=== PATIENT | female | born 1975 | race African-American/Black ===

== ENCOUNTER 2022-04-28 15:47 | Inpatient (IN) ==
[2022-04-28 16:23] LABS: Basophils # 0.1 10*3/uL (0.0-0.2); Basophils % 0.7 % (0.0-0.8); Eosinophils # 0.1 10*3/uL (0.0-0.87); Eosinophils % 0.7 % (0.00-10.9); Hematocrit 32.2 VOL% (35.7-47.0); Hemoglobin 10.1 GM/DL (12.0-16.0); Immature Granulocytes % 0.5 %; Immature Granulocytes Absolute 0.05 #; Lymphocytes # 2.4 10*3/uL (1.4-4.0); Lymphocytes % 21.6 % (21.3-54.2); Mean Corpuscular HGB Conc 31.4 GM/DL (32-36); Mean Platelet Volume 9.9 FL (9.6-12.0); Monocytes # 0.6 10*3/uL (0.11-0.8); Monocytes % 5.2 % (1.7-12.7); Neutrophils % 71.3 % (38.7-73.9); Platelet Count 231 T/CUMM (130-400); Red Blood Count 4.18 MC/CUMM (3.8-5.5); Red Cell Distribution Width 20.9 % (9.3-17.3); White Blood Count 10.9 T/CUMM (4-12)
[2022-04-28 16:50] LABS: Albumin 3.8 G/DL (3.4-5.0); Bilirubin,Total 0.4 MG/DL (0.20-1.00); Calcium 8.5 MG/DL (8.5-10.1); Osmolality,Calculated 277.5 MOS/KG (273-304); Potassium 3.8 MMOL/L (3.5-5.1); Total Protein 7.1 G/DL (6.4-8.2)
[2022-04-28] MEDS ORDERED: NITROGLYCERIN SL 0.4 MG TABLET SL STA (17:06)
[2022-04-28] MEDS ORDERED: ONDANSETRON 4 MG/2 ML VIAL IV ONE (17:07)
[2022-04-28] MEDS ORDERED: MORPHINE 2 MG/1 ML SYRINGE IV STA (17:36)
[2022-04-28] MEDS ORDERED: MORPHINE 2 MG/1 ML SYRINGE ONE (17:36)
[2022-04-28] MEDS ORDERED: ENOXAPARIN 100 MG/ML SYRINGE SUBCUT STA (20:00)
[2022-04-28] MEDS ORDERED: DEXTROSE 10% 250 ML BAG IV PRN (20:08)
[2022-04-28] MEDS ORDERED: ACETAMINOPHEN 325 MG TABLET PO PRN (20:08)
[2022-04-28] MEDS ORDERED: ONDANSETRON 4 MG/2 ML VIAL IV PRN (20:08)
[2022-04-28] MEDS ORDERED: GLUCAGON 1 MG VIAL IM PRN (20:08)
[2022-04-28] MEDS ORDERED: hydrALAZINE 20 MG/1 ML VIAL IV PRN (20:16)
[2022-04-28] MEDS ORDERED: ALBUTEROL 2.5 MG/3 ML NEB RESP TX PRN (20:29)
[2022-04-28] MEDS ORDERED: KETOROLAC 30 MG/1 ML VIAL IV ONE (21:00)
[2022-04-28] MEDS: ALPRAZolam 0.5 MG TABLET PO PRN (21:19)
[2022-04-28] MEDS: carvediloL 25 MG TABLET PO SCH (21:20)
[2022-04-28] MEDS: FERROUS SULFATE 325 MG TABLET PO SCH (21:20)
[2022-04-28] MEDS: hydrALAZINE 25 MG TABLET PO SCH (21:20)
[2022-04-28] MEDS: DOCUSATE SODIUM 100 MG CAPSULE PO SCH (21:20)
[2022-04-28] MEDS: MONTELUKAST 10 MG TABLET PO SCH ×2 (21:20→21:30)
[2022-04-28] MEDS: GABAPENTIN 100 MG CAPSULE PO SCH (21:21)
[2022-04-28] MEDS: traZODone 50 MG TABLET PO SCH (21:21)
[2022-04-28] MEDS: METOCLOPRAMIDE 10 MG TABLET PO SCH (23:25)
[2022-04-29] MEDS: KETOROLAC 30 MG/1 ML VIAL IV SCH ×2 (03:22→09:34)
[2022-04-29] MEDS ORDERED: SODIUM CHLORIDE 0.9% 1,000 ML IV ONE (04:00)
[2022-04-29 05:25] LABS: Basophils % 0.6 % (0.0-0.8); Eosinophils # 0.1 10*3/uL (0.0-0.87); Eosinophils % 1.9 % (0.00-10.9); Hematocrit 28.7 VOL% (35.7-47.0); Hemoglobin 8.8 GM/DL (12.0-16.0); Immature Granulocytes % 0.3 %; Immature Granulocytes Absolute 0.02 #; Lymphocytes # 2.5 10*3/uL (1.4-4.0); Mean Corpuscular HGB Conc 30.7 GM/DL (32-36); Mean Corpuscular Volume 76.9 FL (87-102); Mean Platelet Volume 10.2 FL (9.6-12.0); Monocytes # 0.6 10*3/uL (0.11-0.8); Monocytes % 9.3 % (1.7-12.7); Neutrophils % 47.9 % (38.7-73.9); Platelet Count 186 T/CUMM (130-400); Red Blood Count 3.73 MC/CUMM (3.8-5.5); Red Cell Distribution Width 20.4 % (9.3-17.3); White Blood Count 6.2 T/CUMM (4-12)
[2022-04-29 05:35] LABS: PT Patient Result 10.8 SECS (10.1-12.1)
[2022-04-29 05:44] LABS: Osmolality,Calculated 281.4 MOS/KG (273-304); Potassium 3.4 MMOL/L (3.5-5.1); Risk Ratio 1.63; Thyroid Stimulating Hormone 3.01 uIU/ml (0.358-3.74); VLDL Cholesterol 19.2 MG/DL
[2022-04-29] MEDS ORDERED: APIXABAN 5 MG TABLET PO SCH (09:00)
[2022-04-29] MEDS ORDERED: metOLazone 2.5 MG TABLET PO SCH (09:00)
[2022-04-29] MEDS ORDERED: NICOTINE 14 MG/24 HR PATCH TRANSDERM SCH (09:00)
[2022-04-29] MEDS: CHOLESTYRAMINE 4 GM PACK PO SCH (09:31)
[2022-04-29] MEDS: METOCLOPRAMIDE 10 MG TABLET PO SCH ×2 (09:31→21:01)
[2022-04-29] MEDS: FERROUS SULFATE 325 MG TABLET PO SCH ×2 (09:31→21:01)
[2022-04-29] MEDS: OLMESARTAN 20 MG TABLET PO SCH ×2 (09:31→21:01)
[2022-04-29] MEDS: POTASSIUM CHLORIDE 20 MEQ TABLET PO SCH (09:31)
[2022-04-29] MEDS: GABAPENTIN 100 MG CAPSULE PO SCH ×2 (09:31→21:02)
[2022-04-29] MEDS: methylPREDNISolone 4 MG TABLET PO SCH (09:31)
[2022-04-29] MEDS: DOCUSATE SODIUM 100 MG CAPSULE PO SCH ×2 (09:31→21:01)
[2022-04-29] MEDS: MONTELUKAST 10 MG TABLET PO SCH (09:31)
[2022-04-29] MEDS: hydroCHLOROthiazide 25 MG TABLET PO SCH (09:32)
[2022-04-29] MEDS: PANTOPRAZOLE 40 MG TABLET PO SCH (09:32)
[2022-04-29] MEDS: carvediloL 25 MG TABLET PO SCH ×2 (09:32→21:02)
[2022-04-29] MEDS: hydrALAZINE 25 MG TABLET PO SCH ×2 (09:32→21:02)
[2022-04-29] MEDS: FLUoxetine 20 MG CAPSULE PO SCH (09:37)
[2022-04-29] MEDS: traZODone 50 MG TABLET PO SCH (21:02)
[2022-04-29] MEDS: APIXABAN 5 MG TABLET PO SCH (21:02)
[2022-04-29] MEDS: ALPRAZolam 0.5 MG TABLET PO PRN (21:06)
[2022-04-30 05:08] LABS: Basophils % 0.4 % (0.0-0.8); Eosinophils # 0.2 10*3/uL (0.0-0.87); Hematocrit 29.9 VOL% (35.7-47.0); Hemoglobin 9.1 GM/DL (12.0-16.0); Immature Granulocytes % 0.1 %; Immature Granulocytes Absolute 0.01 #; Lymphocytes # 2.8 10*3/uL (1.4-4.0); Lymphocytes % 39.3 % (21.3-54.2); Mean Corpuscular HGB Conc 30.4 GM/DL (32-36); Mean Corpuscular Volume 77.9 FL (87-102); Mean Platelet Volume 10.4 FL (9.6-12.0); Monocytes # 0.5 10*3/uL (0.11-0.8); Monocytes % 7.5 % (1.7-12.7); Neutrophils % 49.7 % (38.7-73.9); Platelet Count 201 T/CUMM (130-400); Red Blood Count 3.84 MC/CUMM (3.8-5.5); Red Cell Distribution Width 20.5 % (9.3-17.3)
[2022-04-30 05:29] LABS: % Iron Saturation 40.2 % (18-50); Ferritin 14.8 ng/mL (8-252)
[2022-04-30 05:50] LABS: Basophils % 0.6 % (0.0-0.8); Eosinophils # 0.2 10*3/uL (0.0-0.87); Eosinophils % 3.2 % (0.00-10.9); Hematocrit 29.9 VOL% (35.7-47.0); Hemoglobin 9.3 GM/DL (12.0-16.0); Immature Granulocytes % 0.2 %; Immature Granulocytes Absolute 0.01 #; Lymphocytes # 2.6 10*3/uL (1.4-4.0); Lymphocytes % 40.7 % (21.3-54.2); Mean Corpuscular HGB Conc 31.1 GM/DL (32-36); Mean Corpuscular Volume 78.1 FL (87-102); Mean Platelet Volume 10.2 FL (9.6-12.0); Monocytes # 0.5 10*3/uL (0.11-0.8); Monocytes % 7.7 % (1.7-12.7); Neutrophils % 47.6 % (38.7-73.9); Platelet Count 194 T/CUMM (130-400); Red Blood Count 3.83 MC/CUMM (3.8-5.5); Red Cell Distribution Width 20.3 % (9.3-17.3); White Blood Count 6.5 T/CUMM (4-12)
[2022-04-30 05:58] LABS: INR 0.9; PT Patient Result 10.2 SECS (10.1-12.1)
[2022-04-30 06:21] LABS: Calcium 8.1 MG/DL (8.5-10.1); Osmolality,Calculated 276.5 MOS/KG (273-304); Potassium 3.8 MMOL/L (3.5-5.1)
[2022-04-30 06:24] LABS: Sedimentation Rate-Westergren 8 MM/HR (0-20)
[2022-04-30 06:26] LABS: Folate 9.23 NG/ML (5.38-24.0); Vitamin B12 323 PG/ML (211-911)
[2022-04-30] MEDS ORDERED: NICOTINE 21 MG/24 HR PATCH TRANSDERM SCH (09:00)
[2022-04-30] MEDS: CHOLESTYRAMINE 4 GM PACK PO SCH (09:12)
[2022-04-30] MEDS: FLUoxetine 20 MG CAPSULE PO SCH (09:14)
[2022-04-30] MEDS: DOCUSATE SODIUM 100 MG CAPSULE PO SCH ×2 (09:14→20:47)
[2022-04-30] MEDS: OLMESARTAN 20 MG TABLET PO SCH ×2 (09:14→20:47)
[2022-04-30] MEDS: carvediloL 25 MG TABLET PO SCH ×2 (09:14→20:47)
[2022-04-30] MEDS: APIXABAN 5 MG TABLET PO SCH ×2 (09:14→20:47)
[2022-04-30] MEDS: methylPREDNISolone 4 MG TABLET PO SCH (09:14)
[2022-04-30] MEDS: PANTOPRAZOLE 40 MG TABLET PO SCH (09:15)
[2022-04-30] MEDS: MONTELUKAST 10 MG TABLET PO SCH (09:15)
[2022-04-30] MEDS: NICOTINE 21 MG/24 HR PATCH TRANSDERM SCH (09:15)
[2022-04-30] MEDS: hydrALAZINE 25 MG TABLET PO SCH ×2 (09:15→20:47)
[2022-04-30] MEDS: hydroCHLOROthiazide 25 MG TABLET PO SCH (09:15)
[2022-04-30] MEDS: GABAPENTIN 100 MG CAPSULE PO SCH ×2 (09:15→20:47)
[2022-04-30] MEDS: POTASSIUM CHLORIDE 20 MEQ TABLET PO SCH (09:15)
[2022-04-30] MEDS: METOCLOPRAMIDE 10 MG TABLET PO SCH ×2 (09:15→20:47)
[2022-04-30 09:28] LABS: Hemoglobin A1 (Alkaline) 97.9 % (96.5-98.5); Hemoglobin A2 (Alkaline) 2.1 % (1.5-3.5)
[2022-04-30] MEDS: MORPHINE 2 MG/1 ML SYRINGE IV PRN ×3 (09:29→20:48)
[2022-04-30] MEDS: FERROUS SULFATE 325 MG TABLET PO SCH ×2 (09:32→20:47)
[2022-04-30] MEDS ORDERED: ASPIRIN CHEW 81 MG TABLET PO ONE ×2 (14:48→16:30)
[2022-04-30] MEDS ORDERED: NITROGLYCERIN SL 0.4 MG TABLET SL PRN (14:50)
[2022-04-30] MEDS ORDERED: NITROGLYCERIN SL 0.4 MG TABLET SL ONE (14:50)
[2022-04-30] MEDS: ALPRAZolam 0.5 MG TABLET PO PRN (20:46)
[2022-04-30] MEDS: traZODone 50 MG TABLET PO SCH (20:47)
[2022-05-01 05:05] LABS: Basophils # 0.1 10*3/uL (0.0-0.2); Basophils % 0.7 % (0.0-0.8); Eosinophils # 0.2 10*3/uL (0.0-0.87); Eosinophils % 2.3 % (0.00-10.9); Hematocrit 29.3 VOL% (35.7-47.0); Hemoglobin 9.1 GM/DL (12.0-16.0); Immature Granulocytes % 0.1 %; Immature Granulocytes Absolute 0.01 #; Lymphocytes # 2.7 10*3/uL (1.4-4.0); Lymphocytes % 39.2 % (21.3-54.2); Mean Corpuscular HGB Conc 31.1 GM/DL (32-36); Mean Corpuscular Volume 77.7 FL (87-102); Mean Platelet Volume 10.3 FL (9.6-12.0); Monocytes # 0.5 10*3/uL (0.11-0.8); Monocytes % 7.7 % (1.7-12.7); Platelet Count 194 T/CUMM (130-400); Red Blood Count 3.77 MC/CUMM (3.8-5.5); Red Cell Distribution Width 20.1 % (9.3-17.3); White Blood Count 6.9 T/CUMM (4-12)
[2022-05-01 05:15] LABS: PT Patient Result 10.9 SECS (10.1-12.1)
[2022-05-01 05:27] LABS: Calcium 8.3 MG/DL (8.5-10.1); Osmolality,Calculated 276.4 MOS/KG (273-304)
[2022-05-01] MEDS: OLMESARTAN 20 MG TABLET PO SCH ×2 (08:45→21:24)
[2022-05-01] MEDS: hydrALAZINE 25 MG TABLET PO SCH ×3 (08:45→21:24)
[2022-05-01] MEDS: carvediloL 25 MG TABLET PO SCH ×2 (08:48→21:25)
[2022-05-01] MEDS: DOCUSATE SODIUM 100 MG CAPSULE PO SCH ×2 (08:48→21:24)
[2022-05-01] MEDS: APIXABAN 5 MG TABLET PO SCH ×2 (08:48→21:24)
[2022-05-01] MEDS: FERROUS SULFATE 325 MG TABLET PO SCH ×2 (08:49→21:24)
[2022-05-01] MEDS: hydroCHLOROthiazide 25 MG TABLET PO SCH (08:49)
[2022-05-01] MEDS: NICOTINE 21 MG/24 HR PATCH TRANSDERM SCH (08:50)
[2022-05-01] MEDS: GABAPENTIN 100 MG CAPSULE PO SCH ×2 (08:50→21:24)
[2022-05-01] MEDS: POTASSIUM CHLORIDE 20 MEQ TABLET PO SCH (08:50)
[2022-05-01] MEDS: PANTOPRAZOLE 40 MG TABLET PO SCH (08:51)
[2022-05-01] MEDS: MONTELUKAST 10 MG TABLET PO SCH (08:51)
[2022-05-01] MEDS: METOCLOPRAMIDE 10 MG TABLET PO SCH ×2 (08:51→21:24)
[2022-05-01] MEDS: FLUoxetine 20 MG CAPSULE PO SCH (08:51)
[2022-05-01] MEDS: CHOLESTYRAMINE 4 GM PACK PO SCH (08:51)
[2022-05-01] MEDS: methylPREDNISolone 4 MG TABLET PO SCH (08:53)
[2022-05-01] MEDS: ALPRAZolam 0.5 MG TABLET PO PRN ×2 (09:02→21:23)
[2022-05-01] MEDS ORDERED: KETOROLAC 30 MG/1 ML VIAL IV PRN (12:09)
[2022-05-01] MEDS ORDERED: KETOROLAC 30 MG/1 ML VIAL IV ONE (12:09)
[2022-05-01] MEDS: traZODone 50 MG TABLET PO SCH (21:24)
[2022-05-01] MEDS: MORPHINE 2 MG/1 ML SYRINGE IV PRN (21:25)
[2022-05-02 04:52] LABS: Basophils # 0.1 10*3/uL (0.0-0.2); Basophils % 0.9 % (0.0-0.8); Eosinophils # 0.2 10*3/uL (0.0-0.87); Eosinophils % 2.4 % (0.00-10.9); Hemoglobin 9.7 GM/DL (12.0-16.0); Immature Granulocytes % 0.4 %; Immature Granulocytes Absolute 0.03 #; Lymphocytes # 3.1 10*3/uL (1.4-4.0); Lymphocytes % 39.9 % (21.3-54.2); Mean Corpuscular HGB Conc 31.3 GM/DL (32-36); Mean Corpuscular Volume 77.1 FL (87-102); Mean Platelet Volume 10.4 FL (9.6-12.0); Monocytes # 0.5 10*3/uL (0.11-0.8); Monocytes % 6.1 % (1.7-12.7); Neutrophils % 50.3 % (38.7-73.9); Platelet Count 235 T/CUMM (130-400); Red Blood Count 4.02 MC/CUMM (3.8-5.5); Red Cell Distribution Width 20.7 % (9.3-17.3); White Blood Count 7.8 T/CUMM (4-12)
[2022-05-02 05:07] LABS: Calcium 8.6 MG/DL (8.5-10.1); Osmolality,Calculated 273.7 MOS/KG (273-304)
[2022-05-02] MEDS: ALPRAZolam 0.5 MG TABLET PO PRN (08:36)
[2022-05-02] MEDS: OLMESARTAN 20 MG TABLET PO SCH (08:36)
[2022-05-02] MEDS: METOCLOPRAMIDE 10 MG TABLET PO SCH (08:36)
[2022-05-02] MEDS: GABAPENTIN 100 MG CAPSULE PO SCH (08:37)
[2022-05-02] MEDS: methylPREDNISolone 4 MG TABLET PO SCH (08:37)
[2022-05-02] MEDS: POTASSIUM CHLORIDE 20 MEQ TABLET PO SCH (08:37)
[2022-05-02] MEDS: FERROUS SULFATE 325 MG TABLET PO SCH (08:37)
[2022-05-02] MEDS: MONTELUKAST 10 MG TABLET PO SCH (08:37)
[2022-05-02] MEDS: DOCUSATE SODIUM 100 MG CAPSULE PO SCH (08:37)
[2022-05-02] MEDS: hydroCHLOROthiazide 25 MG TABLET PO SCH (08:37)
[2022-05-02] MEDS: PANTOPRAZOLE 40 MG TABLET PO SCH (08:37)
[2022-05-02] MEDS: NICOTINE 21 MG/24 HR PATCH TRANSDERM SCH (08:39)
[2022-05-02] MEDS: FLUoxetine 20 MG CAPSULE PO SCH (08:39)
[2022-05-02] MEDS: CHOLESTYRAMINE 4 GM PACK PO SCH (08:39)
[2022-05-02] MEDS: hydrALAZINE 25 MG TABLET PO SCH (08:39)
[2022-05-02] MEDS: APIXABAN 5 MG TABLET PO SCH (08:39)
[2022-05-02] MEDS: carvediloL 25 MG TABLET PO SCH (08:45)
[2022-05-02] MEDS: MORPHINE 2 MG/1 ML SYRINGE IV PRN (11:30)
[2022-05-02 14:17] VITALS: BP 125/72
== END 2022-05-02 14:35 | disposition home or self-care (01) | DRG 176 ==
LOC: N.ED 15:47 → N.EDINP 15:47 → SUATTDRO 20:08 → N.TELEN 22:53
PROVIDERS: ADMIT Hospitalist; ATTEND Family Medicine